=== PATIENT | female | born 1945 | race Caucasian/White ===

== ENCOUNTER → 2024-09-20 08:59 | Outpatient (CLI) | payer MEDICARE, SELFPAY ==
--- NOTE | 2024-09-20 09:02 | DI.RAD.S_ITS ---
PROCEDURE: XR RIBS LT MIN 3V W CXR1V INDICATIONS: pain posterior ribs w/ deep breathing TECHNIQUE: 2 views of the ribs were acquired, along with a single view chest. COMPARISON: None. FINDINGS: Surgical changes and devices: Left breast clips. Bones and chest wall: No fractures or dislocations. No suspicious bony lesions. Overlying soft tissues appear unremarkable. Lungs and pleura: Large left pleural effusion with associated left basilar atelectasis. Slight contralateral mediastinal shift is consistent with exam dated fluid. Consider empyema versus malignant pleural effusion. Mediastinum: Mediastinal contours appear normal. Heart size is normal. IMPRESSION: 1. Large left pleural effusion with underlying left basilar atelectasis. The presence of slight contralateral mediastinal shift suggest exited of fluid. Consider empyema versus malignant pleural effusion. 2. No acute rib fracture identified. No lytic or blastic bony lesion identified involving the left ribs. Comment: Recommend CT chest with contrast for further evaluation. Dictated by: Reji Gonzales M.D. on 09/20/2024 at 9:23 Approved by: Reji Gonzales M.D. on 09/20/2024 at 9:24
== END ==
PROVIDERS: Referring Provider Physician Assistant; Visit Provider Physician Assistant
DX: J90 Pleural effusion, not elsewhere classified (principal); J98.11 Atelectasis; R07.81 Pleurodynia
CPT/HCPCS: 71101

== ENCOUNTER 2024-09-20 09:46 | Emergency (ER) | payer MEDICARE, SELFPAY ==
[2024-09-20] VITALS (11 sets, daily range): BP systolic 167–205; BP diastolic 76–92; PULSE 89–111; RESP 17–95; TEMP 36.9; O2SAT 91–95; BMI 20.2
--- NOTE | 2024-09-20 10:03 | EKG_ITS ---
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
[2024-09-20 10:13] LABS: Add Manual Diff / Slide Review NO; Basophils Absolute Auto 100 /uL (0-100); Basophils Percent Auto 0.8 % (0-2); Eosinophils Absolute Auto 100 /uL (0-450); Eosinophils Percent Auto 0.8 % (2-4); Hematocrit 39.6 % (36-46); Hemoglobin 13.3 g/dL (12.0-16.0); Lymphocytes Absolute Auto 800 /uL (1100-4500); Lymphocytes Percent Auto 7.9 % (25-40); Mean Corpuscular HGB Conc 33.7 % (30-36); Mean Corpuscular Hemoglobin 32.7 PG (26-34); Mean Corpuscular Volume 97.1 fL (80-100); Monocytes Absolute Auto 1100 /uL (0-900); Monocytes Percent Auto 11.6 % (3-14); Neutrophils Absolute Auto 7700 /uL (1500-7000); Neutrophils Percent Auto 78.9 % (50-75); Platelet Count 355 X10^3/uL (150-400); Red Blood Cell Count 4.07 X10^6/uL (4.0-5.2); Red Cell Distribution Width 13.3 % (11.6-14.8); White Blood Cell Count 9.7 X10^3/uL (4.5-11.0)
[2024-09-20 10:21] LABS: Prothrombin Time 11.4 SECONDS (9.4-12.5)
[2024-09-20 10:25] LABS: Alanine Aminotransferase 23 IU/L (<35); Albumin 4.5 g/dL (3.5-5.0); Albumin Globulin Ratio 1.3 (1.0-2.8); Alkaline Phosphatase 72 U/L (38-126); Aspartate Aminotransferase 33 IU/L (14-36); BUN Creatinine Ratio 17.3 (6-22); Bilirubin Total 0.9 mg/dL (0.2-1.3); Blood Urea Nitrogen 13 mg/dL (7-17); Calcium 9.1 mg/dL (8.4-10.2); Carbon Dioxide 22 mmol/L (22-32); Chloride 104 mmol/L (98-107); Estimated Glomerular Filt Rate > 60 mL/min (>60); Globulin 3.6 g/dL (1.7-4.1); Glucose 105 mg/dL (80-110); HEMOLYSIS 24 (0-50); Potassium 4.4 mmol/L (3.4-5.1); Sodium 136 mmol/L (137-145); Total Protein 8.1 g/dL (6.3-8.2)
[2024-09-20 10:26] LABS: Lactate (Lactic Acid) 1.1 mmol/L (0.7-2.1)
[2024-09-20 10:34] LABS: D Dimer 1064 ng/ml (<500)
[2024-09-20] MEDS: KETOROLAC 30 MG/ML VIAL 15 MG IV (10:35)
[2024-09-20 10:37] LABS: NT-proBNP (BNP-Adult 18+) 47 pg/mL (<450); Troponin I < 0.012 ng/mL (0.01-0.034)
--- NOTE | 2024-09-20 11:40 | ED.GENADULT ---
HPI - General Adult General Chief complaint: Shortness of Breath/Dyspnea Stated complaint: Upper Left side stomach pain Time Seen by Provider: 09/20/24 10:17 Source: patient, RN notes reviewed and old records reviewed Mode of arrival: Family Vehicle Limitations: no limitations History of Present Illness HPI narrative: 79-year-old female history of hypertension, dyslipidemia, breast cancer she was lumpectomy, chemo and radiation approximately 2-3 years ago. She has been cleared but is still being followed regularly with mammogram and MRI. Patient notes that she was started having left back pain and radiating underneath her left breast starting 2 days ago. Has been pleuritic in nature. She states she has not really feel short of breath that is more that it is painful to take a breath. She denies any fevers or chills. No nausea or vomiting. No lightheadedness or passing out. No other GI or urinary symptoms. No new swelling of extremities. She states she takes valsartan 80 mg which has a fairly new medication was switched from her old blood pressure medicine a couple of weeks ago because of difficulty with compliance. Antidepressant daily, statin nightly. No aspirin or thinners. States she had lumpectomy brown 2020 or 2021, did have chemo and radiation. Denies other surgeries. Flew here from [place] in the past several days with plan for a local cruise. She presented to the walk-in clinic where she had a chest x-ray and was referred here to the department. Related Data Previous Rx's Medication Instructions Recorded oxycodone 5 mg tablet 5 mg PO QID PRN pain #14 tabs 09/20/24 Allergies Allergy/AdvReac Type Severity Reaction Status Date / Time No Known Drug Allergies Allergy Verified 09/20/24 10:08 Review of Systems Review of Systems ROS Unobtainable: All systems reviewed & are unremarkable except as noted in HPI and below Patient History Social History Smoking Status: Never smoker Smoking Status: Never smoker Alcohol type: wine Exam Narrative Exam Narrative: GENERAL: Alert and oriented x three, thin, well-appearing female in mild distress HEENT: Head normocephalic, atraumatic, EOMI, pupils reactive, face symmetric, moist mucous membranes NECK: Supple, full range of motion CARDIOVASCULAR: Regular rate and rhythm without murmurs, rubs or gallops. RESPIRATORY: Breath sounds slightly decreased on the left. No wheezes rales or rhonchi. Patient has a little bit of crackles in the right. Nontender, no skin changes. ABDOMEN: Soft, nontender. Normoactive bowel sounds all 4 quadrants. No guarding or rebound, rigidity, no mass : No CVA tenderness EXTREMITIES: Normal range of motion, no clubbing or edema. Neurovascularly intact NEUROLOGICAL: Cranial nerves II through XII grossly intact. Moving all extremities SKIN: Warm, dry, no petechiae, no rashes or lesions. Initial Vital Signs Initial Vital Signs: Vital Signs Temperature 98.4 F 09/20/24 10:03 Pulse Rate 111 H 09/20/24 10:03 Respiratory Rate 17 09/20/24 10:03 Blood Pressure 205/92 H 09/20/24 10:03 Pulse Oximetry 95 09/20/24 10:03 Oxygen Delivery Method Room Air 09/20/24 10:03 Course Orders Ordered: ED Orders 09/20/24 10:00 Complete Blood Count AUTO DIFF Stat Comprehensive Metabolic Panel Stat D Dimer Stat Lactate (Lactic Acid) Stat NT-proBNP (BNP-Adult 18+) Stat Prothrombin Time INR Stat Troponin I Stat 09/20/24 10:03 EKG-12 Lead Stat Measure peak expiratory flow ONCE RT Consult Eval and Treat NOW 09/20/24 12:18 CT angio chest PE protocol Stat Discontinued Medications Ketorolac Tromethamine (Ketorolac 30 Mg/Ml Vial) 15 mg IV NOW ONE Stop: 09/20/24 10:27 Last Admin: 09/20/24 10:35 Dose: 15 mg Documented By: NATANAEL Vital Signs Vital signs: Vital Signs - 8 hr 09/20/24 11:00 09/20/24 11:30 09/20/24 12:00 Pulse Rate 91 H 94 H 97 H Respiratory Rate Blood Pressure 197/82 H 170/81 H 194/90 H Pulse Oximetry 92 91 92 Oxygen Delivery Method Room Air Room Air Room Air 09/20/24 12:30 09/20/24 12:45 09/20/24 13:00 Pulse Rate 91 H 89 Respiratory Rate Blood Pressure 202/84 H 167/77 H Pulse Oximetry 94 93 Oxygen Delivery Method Room Air Room Air 09/20/24 13:30 09/20/24 13:39 09/20/24 14:00 Pulse Rate 92 H 93 H 93 H Respiratory Rate 95 H Blood Pressure 175/76 H 177/84 H 186/81 H Pulse Oximetry 93 95 Oxygen Delivery Method Room Air Room Air Room Air Medical Decision Making Lab Data 09/20/24 10:00 09/20/24 10:00 Labs: Lab Results 09/20/24 Range/Units 10:00 WBC 9.7 (4.5-11.0) X10^3/uL RBC 4.07 (4.0-5.2) X10^6/uL Hgb 13.3 (12.0-16.0) g/dL Hct 39.6 (36-46) % MCV 97.1 (80-100) fL MCH 32.7 (26-34) PG MCHC 33.7 (30-36) % RDW 13.3 (11.6-14.8) % Plt Count 355 (150-400) X10^3/uL Neut % (Auto) 78.9 H (50-75) % Lymph % (Auto) 7.9 L (25-40) % [place] % (Auto) 11.6 (3-14) % Eos % (Auto) 0.8 L (2-4) % Baso % (Auto) 0.8 (0-2) % Neut # (Auto) 7700 H (1054-8286) /uL Lymph # (Auto) 800 L (3966-6876) /uL [place] # (Auto) 1100 H (0-900) /uL Eos # (Auto) 100 (0-450) /uL Baso # (Auto) 100 (0-100) /uL PT 11.4 (9.4-12.5) SECONDS INR 1.0 (0.9-1.3) D-Dimer 1064 H (<500) ng/ml Sodium 136 L (137-145) mmol/L Potassium 4.4 (3.4-5.1) mmol/L Chloride 104 (98-107) mmol/L Carbon Dioxide 22 (22-32) mmol/L BUN 13 (7-17) mg/dL Creatinine 0.75 (0.52-1.04) mg/dL Estimated GFR > 60 (>60) mL/min BUN/Creatinine Ratio 17.3 (6-22) Glucose 105 (80-110) mg/dL Lactate 1.1 (0.7-2.1) mmol/L Calcium 9.1 (8.4-10.2) mg/dL Total Bilirubin 0.9 (0.2-1.3) mg/dL AST 33 (14-36) IU/L ALT 23 (<35) IU/L Alkaline Phosphatase 72 (38-126) U/L Troponin I < 0.012 (0.01-0.034) ng/mL NT-Pro-B Natriuret Pep 47 (<450) pg/mL Total Protein 8.1 (6.3-8.2) g/dL Albumin 4.5 (3.5-5.0) g/dL Globulin 3.6 (1.7-4.1) g/dL Albumin/Globulin Ratio 1.3 (1.0-2.8) ECG Data Attestation: I personally reviewed and interpreted this ECG as follows: Prior ECG tracings: not available for review Interpretation: Sinus tachycardia rate of 101 AL 156 QRS is 74 QTC of 464, no acute ST elevation nonspecific change. No priors for comparison. MDM Narrative Medical decision making narrative: 79-year-old female history of hypertension dyslipidemia breast cancer has been treated with a lumpectomy, chemo and radiation patient notes it was close to the chest wall which is why they follow up with a mammogram and MRI is supposed to have 1 in the upcoming month. Recently flew here from [facility] for vacation. Has had increased left back discomfort radiating towards the front which he describes as pleuritic. Pain is improved here with Toradol in the department. Patient's lab workup overall is appropriate, D-dimer was obtained which is elevated even when age adjusted. CT imaging shows a large left pleural effusion concerning for possible malignant pleural effusion particular based on patient's history. Because of her travel we will obtain CT chest angio to evaluate for PE but also concern for mass or malignant pleural effusion. Patient has been little hypertensive but no hypoxia, no tachypnea or work of breathing. White count of 9.7 hemoglobin of 13 platelets of 355 neutrophils are 78% INR is 1, D-dimer is 1064 age adjusted is positive. Sodium is 136 electrolytes, BUN creatinine, are appropriate lactate 1.1, troponins less than 0.012 with a BNP of 47. Chest x-ray large left pleural effusion with underlying left basilar atelectasis present slight contralateral mediastinal shift consistent with a exam dated fluid. Consider empyema versus malignant pleural effusion. Mediastinal contours appear normal. Heart size is normal. No acute rib fractures no lytic or blastic bony lesions identified involving of the left ribs. Recommend CT chest with contrast for further eval. EKG shows sinus tachycardia nonspecific change CT chest angio PE protocol no PE, large multilobulated left pleural effusion compressive atelectasis left lung and mild contralateral mediastinal shift. Findings are consistent with a malignant pleural effusion or empyema malignant pleural effusion favored. Spoke with the patient, she was returning home in the next week. She was hemodynamically stable, not hypoxic would have patient follow up with her oncology team discussed she likely needs diagnostic thoracentesis. She has follow up next week with her oncologist to have mammogram and MRI she will reach out this week to set up follow up and let them know that she probably needs diagnostic thoracentesis. Copies of all of her labs and imaging were included. We will give a short course of narcotic pain medication she was has a prescription for an abrupt Naprosyn at [facility]. Discharge Plan Departure Patient Disposition: Home Clinical Impression: Pleural effusion Instructions: DI for Pleural Effusion Activity Restrictions/Additional Instructions: Your workup today shows that you have a large multilobulated left pleural effusion, this was seen on your CT imaging is concerning for potential malignant pleural effusion. You are evaluated for blood clots or pulmonary emboli none were seen on your imaging. Please call your oncology team to set up follow up. They will likely wish to obtain a diagnostic thoracentesis when you return. A copy of your imaging and labs today has included. You can take acetaminophen up to a 1000 mg every 6 hours as needed for pain. If inadequate for pain you can take oxycodone 1-2 tablets every 6 hours as needed. This medication can make you sleepy do not drive, perform hazardous activities or make any major decisions while taking it. This medication will make you constipated please take a stool softener such as colace once to twice daily until stools are soft and regular. Prescription sent to [facility] in [place]. Please return here or go to the closest ER if you have increasing shortness of breath, lightheadedness, passing out, coughing up blood, new swelling of your extremities or other new or concerning changes. Prescriptions: New oxycodone 5 mg tablet 5 mg PO QID PRN (Reason: pain) Qty: 14 0RF Stand Alone Forms: Patient Portal/API/Survey
--- NOTE | 2024-09-20 12:18 | DI.CT.S_ITS ---
PROCEDURE: CT ANGIO CHEST PE PROTOCOL INDICATIONS: L chest pain, hx breast ca, also flew from [place]. +effusion cxr TECHNIQUE: After the administration of intravenous contrast, 2 mm thick sections acquired from the pulmonary apices to the posterior costophrenic angles. 3-dimensional maximum intensity projection (MIP) coronal and sagittal reformats were then acquired through the thorax. For radiation dose reduction, the following was used: automated exposure control, adjustment of mA and/or kV according to patient size. COMPARISON: None. FINDINGS: Image quality: Diagnostic. Pulmonary arteries: Pulmonary arteries are normal in size, and demonstrate no intraluminal filling defects to suggest central pulmonary embolism. Lower Neck: No enlarged lymph nodes. Thyroid: No thyroid nodules which require sonographic follow up, per consensus guidelines. Axillae: No enlarged lymph nodes. Chest Wall: Unremarkable. Bones: Unremarkable. Lungs and Pleura: Lobulated large left pleural effusion with compressive atelectasis on the left lung and mild contralateral mediastinal shift to the right. Aerated lungs do not have pulmonary nodules. Heart: Heart size is normal. No pericardial effusion. Thoracic Vessels: No aortic aneurysm. Mediastinum and [place]: No enlarged lymph nodes. Esophagus: No wall thickening. No hiatal hernia. Upper Abdomen: Visualized upper abdomen solid organs and bowel loops appear normal. IMPRESSION: No pulmonary embolus. Large multilobulated left pleural effusion with compressive atelectasis on the left lung and mild contralateral mediastinal shift. Comment: Findings are consistent with either malignant pleural effusion or empyema. Malignant pleural effusion favored. Dictated by: Reji Gonzales M.D. on 09/20/2024 at 13:28 Approved by: Reji Gonzales M.D. on 09/20/2024 at 13:32
== END 2024-09-20 14:25 | disposition home or self-care (01) ==
PROVIDERS: Emergency Provider Emergency Medicine
DX: J90 Pleural effusion, not elsewhere classified (principal); Z85.3 Personal history of malignant neoplasm of breast; I10 Essential (primary) hypertension; R00.0 Tachycardia, unspecified; J98.11 Atelectasis; R07.81 Pleurodynia
CPT/HCPCS: 36415; 71101; 71275; 80053; 83605; 83880; 84484; 85025; 85379; 85610; 93005; 93010; 96374; 99284; J1885; Q9967